=== PATIENT | female | born 1995 | race Caucasian/White ===

== ENCOUNTER → 2017-05-10 11:06 | Outpatient (CLI) | payer OTHER, SELFPAY ==
[2017-05-10 11:11] LABS: Adenovirus,PCR Not Detected (NotDetected); Bordetella Pertussis Not Detected (NotDetected); Chlamydophila Pneumoniae, PCR Not Detected (NotDetected); Coronavirus 229E Not Detected (NotDetected); Coronavirus NL63 Not Detected (NotDetected); Coronavirus OC43 Not Detected (NotDetected); Coronovirus HKU1,PCR Not Detected (NotDetected); Human Metapneumovirus Not Detected (NotDetected); Influenza A, PCR Not Detected (NotDetected); Influenza AH1, 2009 Not Detected (NotDetected); Influenza AH1, PCR Not Detected (NotDetected); Influenza AH3,PCR Not Detected (NotDetected); Mycoplasma Pneumoniae, PCR Not Detected (NotDected); Parainfluenza 1, PCR Not Detected (NotDetected); Parainfluenza 2, PCR Not Detected (NotDetected); Parainfluenza 3, PCR Not Detected (NotDetected); Parainfluenza 4, PCR Not Detected (NotDetected); Respiratory Syncytial Virus Not Detected (NotDetected); Rhinovirus/Enterovirus Not Detected (NotDetected)
[2017-05-10 22:01] LABS: Influenza B, PCR Detected (NotDetected)
== END ==
PROVIDERS: PCP Physician Assistant; Visit Provider Physician Assistant
DX: R50.9 Fever, unspecified (principal); R05 Cough
CPT/HCPCS: 87486; 87581; 87633; 87798

== ENCOUNTER 2022-06-01 16:19 | Outpatient (CLI) | payer SELFPAY ==
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
[2022-06-01 17:15] VITALS: BP 124/65; PULSE 95; RESP 18; TEMP 36.8; O2SAT 96; BMI 24.7
== END 2022-06-01 17:15 | disposition home or self-care (01) ==
LOC: OBOUT 16:21 → OB 16:22
PROVIDERS: Visit Provider Nurse Practitioner Obstetrics & Gynecology
DX: Z04.1 Encounter for examination and observation following transport accident (principal); Z3A.20 20 weeks gestation of pregnancy
CPT/HCPCS: G0463

== ENCOUNTER 2024-04-07 09:10 | Outpatient (CLI) | payer BC, SELFPAY ==
[2024-04-07 16:51] LABS: Basophils % 0.2 % (0.1-2.0); Eosinophils % 0.3 % (0.1-12.0); Hematocrit 40.9 % (37.0-47.0); Hemoglobin 13.7 g/dL (12.2-16.2); Lymphocytes # 2.3 K/mm3 (0.7-4.5); Lymphocytes % 25.9 % (10-50); Mean Corpuscular HGB Conc 33.5 g/dL (31.8-35.4); Mean Corpuscular Hemoglobin 29.8 pg (27.0-31.2); Mean Corpuscular Volume 89.1 fl (81-99); Mean Platelet Volume 10.8 fl (7.4-10.4); Monocytes # 0.4 K/mm3 (0.1-1.0); Monocytes % 4.4 % (1.7-9.3); Neutrophils # 6.1 K/mm3 (1.8-7.8); Platelet Count 337 K/mm3 (142-424); Red Blood Count 4.59 M/mm3 (4.20-5.40); Red Cell Distribution Width 12.3 % (11.5-17.5); White Blood Count 8.9 K/mm3 (4.8-10.8)
[2024-04-07 17:07] LABS: HCG Qualitative, Serum Positive (Negative)
[2024-04-07 17:14] LABS: Alanine Aminotransferase 73 U/L (12-78); Albumin Level 4.6 g/dl (3.5-5.0); Albumin/Globulin Ratio 1.6 (1.1-1.8); Alkaline Phosphatase 65 U/L (38-126); Anion Gap 14.6 mEq/L (5-15); Aspartate Amino Transferase 49 U/L (14-36); Bilirubin,Total 0.5 mg/dl (0.2-1.3); Blood Urea Nitrogen 10 mg/dl (7-17); Calcium 10.1 mg/dl (8.4-10.2); Carbon Dioxide 25 mmol/L (22.0-30.0); Chloride 101 mmol/L (98-107); Estimated Glomerular Filt Rate 101 ml/min (>60); GFR (African American) 122 ML/MIN (>60); Globulin 2.9 g/dL (1.3-3.2); Glucose 84 mg/dl (74-100); Potassium 4.6 mmoL/L (3.5-5.1); Sodium 136 mmol/L (136-145); Total Protein,Serum 7.5 g/dl (6.3-8.2)
[2024-04-07 18:06] LABS: HCG,Quantitative 100580 mIU/ml (0-5.42)
[2024-04-08 08:12] LABS: Progesterone 11.6 ng/mL (.)
== END 2024-04-07 23:59 | disposition home or self-care (01) ==
LOC: LAB.DROPOF 04-08 09:10
PROVIDERS: PCP Nurse Practitioner Family; Visit Provider Nurse Practitioner Family
DX: Z34.02 Encounter for supervision of normal first pregnancy, second trimester (principal); Z3A.20 20 weeks gestation of pregnancy; R11.0 Nausea
CPT/HCPCS: 80053; 84144; 84702; 84703; 85025

== ENCOUNTER 2024-04-08 14:57 | Outpatient (CLI) | payer BC, SELFPAY ==
--- NOTE | 2024-04-08 15:04 | US_ITS ---
PROCEDURE: US OB <= 14 WEEKS FETUS CLINICAL INDICATION: COMPARISON: No exams were available for comparison FINDINGS: Transvaginal sonographic images of the pelvis were obtained. Her last menstrual period is unknown. The uterus is retroverted. An intrauterine gestational sac is present with a pole with a crown-rump length of 1.74cm This correlates to a gestational age of 8weeks 2days. CORNELIO will be 11/16/2024. heart tones are present with an FHR of 170bpm. Yolk sac is noted. The yolk sac measures 6.5mm. There appears to be a small subchorionic hemorrhage. The right ovary is seen and appears normal. There is a corpus luteum within the right ovary that measures 2.0 cm x 1.2 cm. The left ovary is seen and appears normal. There is no fluid in the cul-de-sac. IMPRESSION: 1. Embryo within the uterine cavity with heart activity seen. 2. The embryo measures 8 weeks 2 days and CORNELIO will be 11/16/2024. 3. There appears to be a small subchorionic hemorrhage. 4. Both ovaries are seen and appear normal. There is a corpus luteum in the right ovary. Dictated by: Nj Perez MD 04/09/2024 13:05 Nj Perez MD in OV 04/09/2024 13:05
== END 2024-04-08 23:59 | disposition home or self-care (01) ==
LOC: RAD 14:58
PROVIDERS: PCP Nurse Practitioner Family; Visit Provider Nurse Practitioner Family
DX: Z34.92 Encounter for supervision of normal pregnancy, unspecified, second trimester (principal); Z3A.20 20 weeks gestation of pregnancy
CPT/HCPCS: 76801

== ENCOUNTER 2025-02-03 10:41 | Outpatient (CLI) | payer OTHER, SELFPAY ==
--- OUTSIDE RECORDS SUMMARY | 2024-12-23 13:10 | XMS_ITS | Encounter Summary ---
[facility] Address [address] [place] [address] Care Team Providers Care Bobbin Washer Name Role Phone Shayla Ponce APRN Primary Care Provid er Reason for Referral * Diagnostic Imaging (Routine) - Authorized Specialty Diagnoses / Procedures Referred By Wei elliott Referred To Contact Radiology Diagnoses Family planning Procedures Non-ob Transvaginal Scotty Sparrow MD [address] [facility] [address] [place] [address] Phone: tel: fax: [facility] [address] [facility] [address] [place] [address] Phone: tel: fax: Referral ID Status Reason Start Date Expiration Date V isits Requested Visits Authorized [id number] Authorized 12/23/2024 03/24/2026 1 1 Reason for Visit * Reason Comments Care 11/11/2024 7 WEEKS PP - PAP 05/03 WNL, Discuss IUD insertion Encounter Details Date Type Department Care Team (Late st Contact Info) Description 12/23/2024 1:10 PM EDT Visit [facility] [address] [facility] [address] [place] [phone] Scotty Sparrow MD [address] [facility] [address] [place] [address] Family planning (Primary Dx) Social History Tobacco Use Types Packs/Day Years Used Date Smoking Tobacco: Never Smokeless Tobacco: Never Alcohol Use Standard Drinks/Week Comments Not Currently 0 (1 standard drink = 0.6 oz pur e alcohol) prior to [facility] Utilities Answer Date Recorded In the past 12 months has [employer], gas, oil, or water [employer] threatened to shut off services in your home? No 11/11/2024 AUDIT-C Answer Date Recorded Q1: How often do you have a drink containing alcohol? Never 11/11/2024 Q2: How many drinks containi ng alcohol do you have on a typical day when you are drinking? Patient does not drink Q3: How often do you have si x or more drinks on one occasion? Never 11/11/2024 Overall Financial Resource Strain (CARDIA) Answe r Date Recorded How hard is it for you to pa y for the very basics like food, housing, medical care, and heating? Not hard at all 11/11/2024 PHQ-2 Answer Date Recorded Retired PHQ-9: Brief Depression Severity Measure Score 0 09/28/2022 [facility] of Occupat ional Health - Occupational Stress Questionnaire Answer Date Recorded Do you feel stress - tense, restless, nervous, or anxious, or unable to sleep at night because your mind is troubled all the time - these days? Not at all 11/11/2024 Exercise Vital Sign Answer Date Recorde d On average, how many days pe r week do you engage in moderate to strenuous exercise (like a brisk walk)? 0 days 11/11/2024 On average, how many minutes do you engage in exercise at this level? 0 min 11/11/2024 Hunger Vital Sign Answer Date Recorded Within the past 12 months, y ou worried that your food would run out before you got the money to buy more. Never true 11/12/19 25 Within the past 12 months, t he food you bought just didn't last and you didn't have money to get more. Never true 11/11/2024 PRAPARE - Transportation Answer Date Re corded In the past 12 months, has l ack of transportation kept you from medical appointments or from getting medications? No 08/2024 In the past 12 months, has l ack of transportation kept you from meetings, work, or from getting things needed for daily living? No 11/11/2024 [place] Depression Scale Answer Date Recorded [place] Depression Scale Total 0 12/23/2024 The thought of harming myself has occurred to me . Never 12/23/2024 Abuse Screen Answer Date Recorded Feels Unsafe at Home or Work/School no 11/11/2024 Feels Threatened by Someone no 08/2024 Does Anyone Try to Keep You From Having Contact with Others or Doing Things Outside Your Home? no 11/11/2024 Physical Signs of Abuse Present no 11/11/2024 Housing Stability Answer Date Recorded Current Living Arrangements home 08/2024 Potentially Unsafe Housing Conditions none 11/11/2024 Family and Community Support Answer Torsten e Recorded If for any reason you need h elp with day-to-day activities such as bathing, preparing meals, shopping, managing finances, etc., do you get the help you need? I don't need any help 11/11/2024 How often do you feel lonely or isolated from those around you? Never 11/11/2024 Employment Answer Date Recorded Do you want help finding or keeping work or a job? I do not need or want help 11/11/2024 Disabilities Answer Date Recorded Difficulty Concentrating, Remembering or Making Decisions no 11/11/2024 Difficulty Managing Errands Independently no 11/11/2024 Education Answer Date Recorded Do you want help with school or training? For example, starting or completing job training or getting a high school diploma, GED or equivalent No 11/11/2024 Preferred Language Lao 11/11/2024 PHQ-2 Answer Date Recorded Patient Health Questionnaire-2 Score 0 11/11/2024 Comments No Sex and Gender Information Value Date Recorded Sex Assigned at Not on file Legal Sex Female 1:32 PM EST Gender Identity Not on file Sexual Orientation Not on file documented as of this encounter Last Filed Vital Signs Vital Sign Reading Time Taken Comments Blood Pressure 120/60 12/23/2024 1:17 PM EDT Pulse - - Temperature - - Respiratory Rate - - Oxygen Saturation - - Inhaled Oxygen Concentration - - Weight 74.1 kg (163 lb 6.4 oz) 12/23/2024 1:17 P M EDT Height - - Body Mass Index 31.91 11/11/2024 1:17 PM EDT documented in this encounter Progress Notes * Scotty Sparrow MD - 12/23/2024 1:10 PM EDT Subjective Chief Complaint Patient presents with Care 11/11/2024 7 WEEKS PP - PAP 05/03 WNL, Discuss IUD insertion Giancarlo Perez is a 29 y.o. year old presenting to be seen for her visit. She had a vaginal delivery. Her son is doing well. Since delivery she has not been sexually active. She does not have concerns about post- blues/depression. [place] Score = 0 She is Breast feeding. For ongoing contraception, her plans are undecided. The following portions of the patient's history were reviewed and updated as appropriate:current medications and allergies Social History Tobacco Use Smoking status: Never Smokeless tobacco: Never Review of Systems Constitutional POS: nothing reported NEG: anorexia or night sweats Genitourinary POS: nothing reported NEG: dysuria or hematuria Gastointestinal POS: nothing reported NEG: bloating, change in bowel habits, melena, or reflux symptoms Breast POS: nothing reported NEG: persistent breast lump, skin dimpling, or nipple discharge Objective BP 120/60 Wt 74.1 kg (163 lb 6.4 oz) LMP 01/29/2024 Yes BMI 31.91 kg/m?? General: well developed; well nourished no acute distress mentation appropriate Abdomen: soft, non-tender; no masses no umbilical or inguinal hernias are present no hepato-splenomegaly Pelvis: Clinical staff was present for exam External genitalia: normal appearance of the external genitalia including Bartholin's and Magee's glands. : urethral meatus normal; urethra normal: Vaginal: normal pink mucosa without prolapse or lesions. Cervix: normal appearance. Uterus: retroverted; fully involuted Adnexa: normal bimanual exam of the adnexa. Assessment Normal 6 week exam S/P vaginal delivery Family Planning Consultation Plan BC options reviewed and compared today: condoms, Depo-Provera, IUD - Mirena, IUD - Paraguard, Nexplanon, NuvaRing, and OCP (estrogen/progesterone) The importance of keeping all planned follow-up and taking all medications as prescribed was emphasized. Follow up for ultrasound to recheck IUD location 6 weeks No orders of the defined types were placed in this encounter. IUD Insertion Patient's last menstrual period was 01/29/2024. Date of procedure: 12/23/2024 Risks and benefits discussed? yes All questions answered? yes Consents given by The patient Written consent obtained? yes Time-Out performed: BBB Local anesthesia used: no Procedure documentation: After verifying the patient had a low probability of being and met the criteria for insertion, a sterile speculum has placed and the cervix was cleansed with an antiseptic solution. Vaginal discharge was scant. The anterior lip of the cervix was grasped with a tenaculum and the uterine cavity was gently sounded. There was no difficulty passing the sound through the cervix. Cervical dilation did not need to be performed prior to placing the IUD. The uterus was retroverted and sounded to7 cms. The Mirena was then prepared per the manufacturers instructions. The office supplied Mirena was advanced to a point 2 cms from the fundus and then the arms were released from the sheath. The device was advanced to the fundus and the device was released fully from the sheath.. The string was cut 3 cms in length. Bleeding from the cervix was scant. She tolerated the procedure without any difficulty. Post procedure instructions: It was reviewed with Giancarlo that the Mirena will not alter the timing of when she bleeds but it may decrease the quantity of flow. Roughly 30% of people will be amenorrheic over time. Efficacy rate of 99.2% over 5 years was discussed. Spontaneous expulsion rate of 1-2% was also discussed. If she has any issue with fever or excessive bleeding or pain she is to call the o ffice immediately. Otherwise I would like to see her back in 6 weeks with an ultrasound to confirm correct placement. Scotty Sparrow M.D. December 23, 2024 Note: Dictated Utilizing [email or web address] Dictation documented in this encounter Plan of Treatment Upcoming Encounters Date Type Department Care Team (Late st Contact Info) Description 02/05/2025 12:30 PM EDT Appointment [facility] [address] [facility] [address] [place] [address] 02/05/2025 1:10 PM EDT Office Visit [facility] [address] [facility] [address] [place] [address] Scotty Sparrow MD [address] [facility] [address] [place] [phone] Scheduled Orders Name Type Priority Associated Diagnoses Orde r Schedule US Non-ob Transvaginal Imaging Routine Family planning Expected: 02/03/2025, Expires: 12/23/2025 documented as of this encounter Visit Diagnoses Diagnosis Family planning- Primary Other general counseling and advice for contraceptive management documented in this encounter Care Teams Bobbin Washer Relationship Specialty Start Date End Date Shayla Ponce APRN [address] [place] [phone] PCP - General Family Medicine 04/08/24 documented as of this encounter
--- OUTSIDE RECORDS SUMMARY | 2025-02-04 12:35 | XMS_ITS | Encounter Summary ---
[facility] [address] [place] [address] Care Team Providers Care Division Leader Name Role Phone Shayla Ponce APRN Primary Care Provid er Encounter Details Date Type Department Care Team (Latest Contact Info) Description 12/23/2024 Travel Social History Tobacco Use Types Packs/Day Years Used Date Smoking Tobacco: Never Smokeless Tobacco: Never Alcohol Use Standard Drinks/Week Comments Not Currently 0 (1 standard drink = 0.6 oz pur e alcohol) prior to [facility] Utilities Answer Date Recorded In the past 12 months has [employer], gas, oil, or water [employer] threatened to shut off services in your [...] Brief Depression Severity Measure Score 0 09/28/2022 [facility] [place] of Occupat ional Health - Occupational Stress [...] things needed for daily living? No 11/11/2024 [place] Depression Scale Answer Date Recorded [place] Depression Scale Total 0 12/23/2024 The thought [...] GED or equivalent No 11/11/2024 Preferred Language Togolese 11/11/2024 PHQ-2 Answer Date Recorded Patient Health Questionnaire-2 Score 0 11/11/2024 Comments No Sex and Gender Information Value Date Recorded Sex Assigned at Not on file Legal Sex Female 1:32 PM EST Gender Identity Not on file Sexual Orientation Not on file documented as of this encounter Plan of Treatment Upcoming Encounters Date Type Department Care Team (Late st Contact Info) Description 02/05/2025 12:30 PM EDT Appointment [facility] [address] [facility] [address] [place] [address] 02/05/2025 1:10 PM EDT Office Visit [facility] [address] [place] [id number] [place] [address] Scotty Sparrow MD [address] [address] documented as of this encounter Visit Diagnoses Not on filedocumented in this encounter Care Teams Division Leader Relationship Specialty Start Date End Date Shayla Ponce APRN [address] [place] [address] PCP - General Family Medicine 04/08/24 documented as of this encounter
--- OUTSIDE RECORDS SUMMARY | 2025-02-04 12:35 | XMS_ITS | Encounter Summary ---
[facility] [address] [place] [address] Care Team Providers Care Commercial Pilot Name Role Phone Shayla Ponce APRN Primary Care Provid er Encounter Details Date Type Department Care Team (Late st Contact Info) Description 07/29/2024 Results Follow-Up [facility] [address] [place] [address] Scotty Sparrow MD [address] [facility] [address] [place], [place] [id number] Social History Tobacco Use Types Packs/Day Years Used Date Smoking Tobacco: Never Smokeless Tobacco: Never Alcohol Use Standard Drinks/Week Comments Not Currently 0 (1 standard drink = 0.6 oz pur e alcohol) prior to AUDIT-C Answer Date Recorded Q1: How often do you have a drink containing alcohol? Never 09/28/2022 Q2: How many drinks containi ng alcohol do you have on a typical day when you are drinking? Patient does not drink Q3: How often do you have si x or more drinks on one occasion? Never 09/28/2022 Overall Financial Resource Strain (CARDIA) Answe r Date Recorded How hard is it for you to pa y for the very basics like food, housing, medical care, and heating? Not hard at all 09/28/2022 PHQ-2 Answer Date Recorded Retired PHQ-9: Brief Depression Severity Measure Score 0 09/28/2022 Exercise Vital Sign Answer Date Recorde d On average, how many days pe r week do you engage in moderate to strenuous exercise (like a brisk walk)? 0 days 09/28/2022 On average, how many minutes do you engage in exercise at this level? 0 min 09/28/2022 Hunger Vital Sign Answer Date Recorded Within the past 12 months, y ou worried that your food would run out before you got the money to buy more. Never true 09/29/19 23 Within the past 12 months, t he food you bought just didn't last and you didn't have money to get more. Never true 09/28/2022 PRAPARE - Transportation Answer Date Re corded In the past 12 months, has l ack of transportation kept you from medical appointments or from getting medications? No 09/08 In the past 12 months, has l ack of transportation kept you from meetings, work, or from getting things needed for daily living? No 09/28/2022 [place] Depression Scale Answer Date Recorded [place] Depression Scale Total 1 09/29/2022 The thought of harming myself has occurred to me . Unrecognized value 09/29/2022 Abuse Screen Answer Date Recorded Feels Unsafe at Home or Work/School no 09/28/2022 Feels Threatened by Someone no 09/08 Does Anyone Try to Keep You From Having Contact with Others or Doing Things Outside Your Home? no 09/28/2022 Physical Signs of Abuse Present no 09/28/2022 Housing Stability Answer Date Recorded Current Living Arrangements home 09/08 Potentially Unsafe Housing Conditions none 09/28/2022 Family and Community Support Answer Torsten e Recorded If for any reason you need h elp with day-to-day activities such as bathing, preparing meals, shopping, managing finances, etc., do you get the help you need? I don't need any help 09/28/2022 How often do you feel lonely or isolated from those around you? Never 09/28/2022 Employment Answer Date Recorded Do you want help finding or keeping work or a job? I do not need or want help 09/28/2022 Disabilities Answer Date Recorded Difficulty Concentrating, Remembering or Making Decisions no 09/28/2022 Difficulty Managing Errands Independently no 09/28/2022 Education Answer Date Recorded Do you want help with school or training? For example, starting or completing job training or getting a high school diploma, GED or equivalent No 09/28/2022 Preferred Language American 09/28/2022 PHQ-2 Answer Date Recorded Retired PHQ-9: Brief Depression Severity Measure Score 0 09/28/2022 Comments Yes Sex and Gender Information Value Date Recorded Sex Assigned at Not on file Legal Sex Female 1:32 PM EST Gender Identity Not on file Sexual Orientation Not on file documented as of this encounter Progress Notes * Scotty Sparrow MD - 07/30/2024 9:07 AM EDT She is borderline anemic and I have sent a precsription to mail order pharmacy for iron supplement to be taked in addition to the vitamin documented in this encounter Miscellaneous Notes * Telephone Encounter - Kd [employer]al RegSched Rep - 08/26/2024 9:42 AM EDT Patient called, stating she has not yet received Ferric Maltol. Patient wants to know if it could be sent to local pharmacy instead. Please advise documented in this encounter Plan of Treatment Upcoming Encounters Date Type Department Care Team (Late st Contact Info) Description 02/05/2025 12:30 PM EDT Appointment [facility] [address] [facility] [address] [place] [address] 02/05/2025 1:10 PM EDT Office Visit [facility] [address] [facility] [address] [place] [address] Scotty Sparrow MD [address] [facility] [address] [place] [address] documented as of this encounter Visit Diagnoses Not on filedocumented in this encounter Care Teams Commercial Pilot Relationship Specialty Start Date End Date Shayla Ponce APRN [address] [place] [address] PCP - General Family Medicine 04/08/24 documented as of this encounter
--- OUTSIDE RECORDS SUMMARY | 2025-02-04 12:35 | XMS_ITS | Clinical Summary ---
Author Organization [facility] Address [address] [place] [address] Care Team Providers Care Shipping Support Clerk Name Role Phone Shayla Ponce APRN Primary Care Provid er Allergies No known active allergies Medications Vit-Fe Fumarate-FA ( Vitamin Plus Low Iron) 27-1 MG tablet Take 1 tablet by mouth Daily. 100 tablet 3 2 Active calcium carbonate (TUMS) 500 MG chewable tablet Chew 1-2 tablets As Needed for Indigestion or Heartburn. Active ferrous sulfate 325 (65 FE) MG tablet Take 1 tablet by mouth Daily With Breakfast. 100 tablet 1 5 Active benzocaine-ment hol (DERMOPLAST) 20-0.5 % aerosol topical spray Apply topically to the appropriate area as directed As Needed for Mild Pain (perineal pain). 78 g 5 Active ibuprofen (ADVIL,MOTRIN) 600 MG tablet Take 1 tablet by mouth Every 6 (Six) Hours As Needed for Mild Pain or Moderate Pain. 60 tablet 11/13/2024 10:14 AM EDT 5 Active witch booker-glycerin (TUCKS) pad Apply 1 Pad topically to the appropriate area as directed As Needed for Irritation or Hemorrhoids. 100 each 5 Active Active Problems Problem Noted Date Diagnosed Date Family planning 12/23/2024 exam 12/23/2024 History of prior with IUGR Assessment & Plan (07/01/2024 11:21 AM EDT): We will plan to follow patient for serial growth. Resolved Problems Problem Noted Date Diagnosed Date Resolved Date Term 11/11/2024 12/23/2024 07/29/2024 12/23/2024 Preeclampsia 09/28/2022 04/22/2024 IUGR (intrauterine growth re tardation) affecting mother, third trimester, not applicable or unspecified fetus 08/24/2022 04/22/19 Assessment & Plan (08/24/2022 10:08 AM EDT): There is considerable variability in the definition of what constitutes a growth-restricted fetus. Definitions have included estimated weight below the 3rd percentile, below the 5th percentile or below the 10th percentile for gestational age. Subnormal growth may be a consequence of error in dating criteria or result from chronic uteroplacental insufficiency, exposure to drugs or environmental agents, congenital infections or intrinsic genetic limitations of growth potential. Early or symmetric IUGR can suggest chromosomal abnormalities such as trisomies, triploidies or maternal uniparental disomy. Asymmetrical IUGR may result from nutritional compromise with sparing of head growth and be associated with tobacco abuse, chronic placental abnormalities such as abruption or as a harbinger of preeclampsia. Current recommendations by Copel and Gladisr for the management of growth restriction, (Obstet Gynecol August 2013) suggest for patients at term (37 0/7 weeks' gestation or more) that delivery be affected if the estimated weight is less than the 5th percentile, or oligohydramnios is present with an estimated weight of less than the 10th percentile, or with worsening testing results. Otherwise, delivery can be delayed as long as testing is reassuring with plans for elective delivery at 39 weeks' gestation. Induction of labor can be attempted depending on the indication for delivery. If the diagnosis of IUGR is (before 37 weeks' gestation), it is not possible to make absolute recommendations on timing unless other testing is reassuring based on the data from the Growth Restriction Intervention Trial (GRIT), a multinational prospective randomized study (Lancet 2004). It is suggested that growth be monitored every two weeks with consideration for delivery if no growth occurs over the course of 14 days. The patient should receive twice weekly nonstress testing with amniotic fluid volume assessment. Further, the literature would support weekly Doppler ultrasonography of the umbilical artery in the setting of intrauterine growth retardation with hospitalization for evidence of absent or reverse end-diastolic velocities. Delivery should also be considered for worsening testing (biophysical profile score less than 6/8 or nonreassuring heart rate tracing). When delivery before 32 weeks' gestation is imminent, consider intravenous magnesium sulfate administration for neuroprotection. Patient is today with early abdominal circumference lag. Normal circumference is approximately 3% sent for dates. As such I would recommend increased rest and nutrition. Due to her history of gestational hypertension I would also institute twice-weekly testing. With normal ZACARIAS and Dopplers today as well as an overall normal EFW I would believe that NSTs would be adequate in Dr. Sparrow's office. We will rescan this patient for growth in 2 weeks. 39 weeks gestation of 03/14/2022 12/23/2024 Hx of preeclampsia, prior pr egnancy, currently 03/14/2022 12/23/2024 Assessment & Plan (09/23/2024 10:46 AM EDT): Patient returns today for complicated by history of preeclampsia as well as a history of intrauterine growth restriction. Patient's blood pressure today is 117/67 she reports no signs or symptoms of preeclampsia. She notes good movement. Ultrasound today demonstrates a normally grown fetus with no abnormality seen. Amniotic fluid volume and umbilical artery Dopplers are normal. Cervical length appears normal. Patient was counseled regarding signs and symptoms of preeclampsia. Hopefully she will not have a recurrence of the disease. appears to be growing very well today with no evidence of intrauterine growth restriction. At the current time I do not see any reason to alter normal obstetric care. We have not scheduled the patient back with us but we would be happy to see her if needed. Patient was counseled extensively regarding movement will contact her provider immediately if she notices any decreased movement. Assessment & Plan (07/01/2024 11:23 AM EDT): BP today is 120/64. Patient has not started taking a daily [id number]. She has some baseline labs, but not all. Serum creatinine 0.56, AST/ALT 14/10. - Recommend urine P:C ratio today - Recommend full preeclampsia panel or adding uric acid and LDH - Recommend patient start taking daily ASA 81mgs for possible preeclampsia prevention Supervision of high risk pre gnancy, antepartum 03/14/2022 12/23/2024 Weight loss, unintentional 12/08/2020 0 04/22/2024 Family planning counseling 03/25/2018 0 12/08/2020 care following 02/09/18 (boy) 02/09/2018 03/14/2022 Bleeding from genital tract during 8 01/08/2018 38 weeks gestation of 07/17/2017 02/09/2018 07/03/2017 02/09/2018 Recurrent urinary tract infection 07/03/2017 12/08/2020 Labor without complication 09/26/2015 0 09/26/2015 Vaginal delivery 09/26/2015 08/07/2017 Mild preeclampsia delivered 09/26/2015 10/30/2017 [facility] 16 [facility] or older in third trimester 09/08/2015 09/26/2015 Encounters Date Type Department Care Team Description 12/23/2024 1:10 PM EDT Visit [facility] [address] [facility] [address] [place] [address] Scotty Sparrow MD Family planning (Primary Dx) 12/23/2024 Travel 11/24/2024 Maternal Screening [facility] [address] [place] [address] Kathrin Copeland, RN 11/14/2024 Maternal Screening [facility] [address] [place] [address] Steff Parish RN 11/11/2024 4:07 PM EDT Anesthesia Event [facility] [address] [place] [address] Sheyla Jacobson DO 11/11/2024 12:39 PM EDT - 11/13/2024 2:11 PM EDT Hospital Encounter [facility] 4[facility] [address] [address] Scotty Sparrow MD Supervision of high risk , antepartum Discharge Disposition: Home or Self Care 11/11/2024 5:00 AM EDT - 11/11/2024 11:59 PM EDT Hospital Encounter [facility] PROCED[facility] [address] [place] [id number] Discharge Disposition: Home or Self Care 11/11/2024 Travel 11/10/2024 Prep for Surgery [facility] [address] [place] [address] Scotty Sparrow MD 11/04/2024 10:30 AM EDT Routine [facility] OBGYN [address] [place] [address] Scotty Sparrow MD [place]: [id number] 11/04/2024 Prep for Surgery [facility] [address] [place] [address] Scotty Sparrow MD 11/04/2024 Travel from Last 3 Months Family History Medical History Relation Name Comments Hypertension Father Heart disease Paternal Grandmother Hypertension Paternal Grandmother Relation Name Status Comments Father Alive Mother Alive Paternal Grandmother Social History Tobacco Use Types Packs/Day Years Used Date Smoking Tobacco: Never Smokeless Tobacco: Never Tobacco Cessation:Counseling Given: Not Answered Alcohol Use Standard Drinks/Week Comments Not Currently 0 (1 standard drink = 0.6 oz pur e alcohol) prior to [facility] Utilities Answer Date Recorded In the past 12 months has [employer], [employer], or water [facility] threatened to shut off services in your [...] Brief Depression Severity Measure Score 0 09/28/2022 [facility] - Occupational Stress [...] things needed for daily living? No 11/11/2024 [place] Depression Scale Answer Date Recorded [place] Depression Scale Total 0 12/23/2024 The thought [...] GED or equivalent No 11/11/2024 Preferred Language Gibraltarian 11/11/2024 PHQ-2 Answer Date Recorded Patient Health Questionnaire-2 Score 0 11/11/2024 Comments No Sex and Gender Information Value Date Recorded Sex Assigned at Not on file Legal Sex Female 1:32 PM EST Gender Identity Not on file Sexual Orientation Not on file Last Filed Vital Signs Vital Sign Reading Time Taken Comments Blood Pressure 120/60 12/23/2024 1:17 PM EDT Pulse 70 11/13/2024 7:15 AM EDT Temperature 36.8 C (98.3 F) 11/13/2024 7:15 AM EDT Respiratory Rate 16 11/13/2024 7:15 AM EDT Oxygen Saturation - - Inhaled Oxygen Concentration - - Weight 74.1 kg (163 lb 6.4 oz) 12/23/2024 1:17 P M EDT Height 152.4 cm (5') 11/11/2024 1:17 PM EDT Body Mass Index 31.91 11/11/2024 1:17 PM EDT Plan of Treatment Upcoming Encounters Date Type Department Care Team (Late st Contact Info) Description 02/05/2025 12:[address] [facility] [address] [facility] [address] [place] [address] 02/05/2025 1:10 PM EDT Office Visit [facility] [address] [facility] [address] [place] [address] Scotty Sparrow MD [address] [facility] [address] [place] [address] Health Maintenance Due Date Last Done Comments ANNUAL PHYSICAL 06/26/2017 TDAP/TD VACCINES (2 - Td or Tdap) 11/05/2019 11/04/2009 Annual Gynecologic Pelvic and Breast Exam 12/09/2021 12/08/2020 INFLUENZA VACCINE 11/07/2024 PAP SMEAR 04/22/2027 04/22/2024 Pneumococcal Vaccine 0-49 Aged Out 03/27/2000 No longer eligible based on patient's age to complete this topic CHLAMYDIA SCREENING Discontinued 04/22/2024 HEPATITIS C SCREENING Completed 04/22/2024 , 03/20/2022, 07/03/2017 Procedures Procedure Name Priority Date/Time Associated Diagnosis Comments CBC AND DIFFERENTIAL Timed 2024 5:21 AM EDT CBC WITH AUTO DIFFERENTIAL Timed 2024 5:21 AM EDT PRE-ECLAMPSIA PANEL Routine 2024 5 :21 AM EDT HC BH AN LABOR EPIDURAL KIT Routine 11/11/2024 4:20 PM EDT TYPE AND SCREEN Routine 11/11/2024 2:17 PM EDT Supervision of high risk , antepartum PRE-ECLAMPSIA PANEL Routine 11/11/2024 2 :17 PM EDT TREPONEMA PALLIDUM AB W/REFLEX RPR Routine 11/11/2024 1:11 PM EDT Supervision of high risk , antepartum CBC (NO DIFF) Routine 11/11/2024 1:11 PM EDT Supervision of high risk , antepartum POCT URINALYSIS DIPSTICK, MANUAL Routine 11/04/2024 10:49 AM EDT HEPATITIS C ANTIBODY Routine 04/22/2024 1:18 PM EST Supervision of high risk , antepartum LIQUID-BASED PAP SMEAR WITH HPV GENOTYPING REGARDLESS OF INTERPRETATION, [facility] (PAZ,COR,MAD) Routine 04/22/2024 12:34 PM EST Supervision of high risk , antepartum from Last 3 Months or Most Recently Relevant to Health Maintenance Results * (ABNORMAL) Preeclampsia Panel (2024 5:21 AM EDT) Only the most recent of2 resultswithin the time period is included. Alkaline Phosphatase 147(H) 39 - 117 U/L 2024 6:27 AM EDT [facility] ALT (SGPT) 16 1 - 33 U/L 2024 6:27 AM EDT [facility] AST (SGOT) 26 1 - 32 U/L 2024 6:27 AM EDT [facility] Creatinine 0.66 0.57 - 1.00 mg/dL 2024 6:27 AM EDT [facility] Total Bilirubin <0.2 0.0 - 1.2 mg/dL 2024 6:27 AM EDT [facility] LDH 262(H) 135 - 214 U/L 2024 6:27 AM EDT [facility] Uric Acid 7.1(H) 2.4 - 5.7 mg/dL 2024 6:27 AM EDT [facility] Blood Venipuncture / Unknown 2024 5:21 AM EDT 2024 6:06 AM EDT us Scotty Sparrow MD LAB BLOOD ORDERABLES Final Result [facility]
[address] [place] [address], * (ABNORMAL) CBC Auto Differential (2024 5:21 AM EDT) Pathologist [facility] WBC 10.60 3.40 - 10.80 10*3/mm3 [facility] RBC 4.01 3.77 - 5.28 10*6/mm3 2024 6:38 AM [facility] Hemoglobin 12.3 12.0 - 15.9 g/dL 2024 6:38 AM T [facility] Hematocrit 37.0 34.0 - 46.6 % 2024 6:38 AM EDT [facility] MCV 92.3 79.0 - 97.0 fL 2024 6:38 AM EDT [facility] MCH 30.7 26.6 - 33.0 pg 2024 6:38 AM [facility] MCHC 33.2 31.5 - 35.7 g/dL 2024 6:38 AM [facility] RDW 13.0 12.3 - 15.4 % 2024 6:38 AM [facility] RDW-SD 44.0 37.0 - 54.0 fl 2024 6:38 AM [facility] MPV 11.4 6.0 - 12.0 fL 2024 6:38 AM [facility] Platelets 211 140 - 450 10*3/mm3 2024 6:38 AM [facility] Neutrophil % 68.0 42.7 - 76.0 % 2024 6:38 AM EDT [facility] Lymphocyte % 22.9 19.6 - 45.3 % 2024 6:38 AM EDT [facility] Monocyte % 7.1 5.0 - 12.0 % 2024 6[facility] Eosinophil % 0.9 0.3 - 6.2 % 2024 6[facility]38 [facility] Basophil % 0.6 0.0 - 1.5 % 2024 6:38 AM EDT [facility] Immature Grans % 0.5 0.0 - 0.5 % 2024 6:38 AM EDT [facility] Neutrophils, Absolute 7.21(H) 1.70 - 7.00 10*3/mm3 2024 6:38 AM EDT [facility] Lymphocytes, Absolute 2.43 0.70 - 3.10 10*3/mm3 2024 6:38 AM EDT [facility] Monocytes, Absolute 0.75 0.10 - 0.90 10*3/mm3 2024 6:38 AM EDT [facility] Eosinophils, Absolute 0.10 0.00 - 0.40 10*3/mm3 2024 6:38 AM EDT [facility] Basophils, Absolute 0.06 0.00 - 0.20 10*3/mm3 2024 6:38 AM EDT [facility] Immature Grans, Absolute 0.05 0.00 - 0.05 10*3/mm3 2024 6:38 AM EDT [facility] nRBC 0.0 0.0 - 0.2 /100 WBC 2024 6:38 AM EDT [facility] Blood Venipuncture / Unknown 2024 5:21 AM EDT 2024 6:20 AM EDT Scotty Sparrow MD LAB BLOOD ORDERABLES Final Result [facility]
[address] [place] [address], * HC BH AN LABOR EPIDURAL KIT (11/11/2024 4:20 PM EDT) Narrative Sheyla Jacobson DO - 11/11/2024 4:20 PM EDT Sheyla Jacobson DO 11/11/2024 4:20 PM Labor Epidural Patient reassessed immediately prior to procedure Patient location during procedure: OB Performed By Anesthesiologist: Sheyla Jacobson DO Preanesthetic Checklist Completed: patient identified, IV checked, risks and benefits discussed, surgical consent, monitors and equipment checked, pre-op evaluation and timeout performed Additional Notes DPE performed using 25g Chapo Prep: Pt Position:sitting Automobile Rental Clerk:cap, gloves, mask and sterile barrier Prep:chlorhexidine gluconate and isopropyl alcohol Monitoring:blood pressure monitoring Epidural Block Procedure: Approach:midline Guidance:palpation technique Location:L3-L4 Needle Type:Tuohy Needle Gauge:17 G Loss of Resistance Medium: air Loss of Resistance: 5cm Cath Depth at skin:11 cm Paresthesia: none Aspiration:negative Test Dose:negative Number of Attempts: 1 Post Assessment: Dressing:occlusive dressing applied and secured with tape Pt Tolerance:patient tolerated the procedure well with no apparent complications Complications:no Sheyla Torres DO ANESTHESIA ORDERAB LES Final Result * Type & Screen (11/11/2024 2:17 PM EDT) ABO Type O 11/11/2024 3:11 PM EDT [facility] RH type Positive 11/11/2024 3:11 PM EDT [facility] Antibody Screen Negative 11/11/2024 3:11 PM EDT [facility] T&S Expiration Date 11/14/2024 11:59:59 PM 11/11/2024 3:11 PM EDT [facility] Blood Structure of right upper limb / Unknown Venipuncture / Unknown 11/11/2024 2:17 PM EDT 11/11/2024 2:30 PM EDT Scotty Sparrow MD BLOOD BANK TEST ORDERABLES Edited Result - Final [facility]
[address] [place] [address], * Treponema pallidum AB w/Reflex RPR (11/11/2024 1:11 PM EDT) Treponemal AB Total Non-Reacti ve Non-React janis 11/11/2024 8:16 PM EDT [facility] Blood Venipuncture / Unknown 11/11/2024 1:11 PM EDT 11/11/2024 1:22 PM EDT Narrative [facility] - 11/11/2024 8:16 PM EDT Reactive results will reflex RPR testing. Scotty Sparrow MD LAB BLOOD ORDERABLES Final Result [facility]
[address] [place] [address], * CBC (No Diff) (11/11/2024 1:11 PM EDT) Pathologist [facility] WBC 8.88 3.40 - 10.80 10*3/mm3 11/11/2024 1:29 PM EDT [facility] RBC 4.45 3.77 - 5.28 10*6/mm3 11/11/2024 1:29 PM EDT [facility] Hemoglobin 13.4 12.0 - 15.9 g/dL 11/11/2024 1:29 PM EDT [facility] Hematocrit 40.7 34.0 - 46.6 % 11/11/2024 1:29 PM EDT [facility] MCV 91.5 79.0 - 97.0 fL 11/11/2024 1:29 PM EDT [facility] MCH 30.1 26.6 - 33.0 pg 11/11/2024 1:29 PM EDT [facility] MCHC 32.9 31.5 - 35.7 g/dL 11/11/2024 1:29 PM EDT [facility] RDW 13.1 12.3 - 15.4 % 11/11/2024 1:29 PM EDT [facility] RDW-SD 43.6 37.0 - 54.0 fl 11/11/2024 1:29 PM EDT [facility] MPV 11.2 6.0 - 12.0 fL 11/11/2024 1:29 PM EDT [facility] Platelets 270 140 - 450 10*3/mm3 11/11/2024 1:29 PM EDT [facility] Blood Venipuncture / Unknown 11/11/2024 1:11 PM EDT 11/11/2024 1:22 PM EDT Scotty Sparrow MD LAB BLOOD ORDERABLES Final Result [facility]
[address] [place] [address], [place] [phone] * (ABNORMAL) POC Urinalysis Dipstick (11/04/2024 10:49 AM EDT) [facility] Glucose, UA Negative Negative mg/dL Protein, POC Trace(A) Negative mg/dL Urine 11/04/2024 10:4 9 AM EDT Ally Leach MD POINT OF CARE TEST ORDERA BLES Final Result * Hepatitis C Antibody (04/22/2024 1:18 PM EST) [facility] Hepatitis C Ab Non-Reacti ve Non-Reacti ve 04/22/2024 8:55 PM EST [facility] Blood Venipuncture / Unknown 04/22/2024 1:18 PM EST 04/22/2024 1:18 PM EST Scotty Sparrow MD LAB BLOOD ORDERABLES Final Result [facility]
[address] [place] [address], [place] [phone] * LIQUID-BASED PAP SMEAR WITH HPV GENOTYPING REGARDLESS OF INTERPRETATION (PAZ,COR,MAD) (04/22/2024 12:34 PM EST) [facility] Reference Lab Report [facility] [address] [place] [address] or [phone] Tahir Fox M.D., Inhalation Therapy Teacher PATIENT NAME LABORATORY NO. GIANCARLO MAHONEY. [id number] AGE SEX N CLIENT REF # [facility] [address] 1995 F [id number] [facility] REQUEST[facility] Elan. ATTENDING M.D. COPY TO. MD PANCHO CARTY BLAKE [address] [facility], [address] DATE COLLECTED DATE RECEIVED [place] [address] 04/22/2024 04/22/2024 04/23/2024 ThinPrep Pap with Cytyc Imaging DIAGNOSIS: Negative for intraepithelial lesion or malignancy Multiple factors can influence accuracy of Pap tests; therefore, screening at regular intervals is necessary for early cancer detection. Professional interpretation rendered by Zelalem Silva M.D.,F.C.A.P. at [facility], [address] [place] [address]. SPECIMEN ADEQUACY: SATISFACTORY FOR EVALUATION Transformation zone is absent or insufficient. SOURCE OF SPECIMEN: VAGINAL/CERVICAL/ ENDOCERVICAL SLIDES: 1 CLINICAL HISTORY: Supervision of high risk , antepartum HPV HR-HPV POOL: Negative The Aptima HPV assay is an in vitro nucleic acid amplification test for the qualitative detection of E6/E7 viral messenger RNA from 14 high risk types of HPV in cervical specimens. The high risk HPV types detected include: 16, 18, 31, 33, 35, 39, 45, 51, 52, 56, 58, 59, 66, 68 TRAINING AND DEVELOPMENT HEAD: TEA LEDESMA (ASCP) REVIEWED, DIAGNOSED AND ELECTRONICALLY SIGNED BY: Zelalem Silva M.D.,F.C.A.P. CPT CODES: [id number], [id number], [id number] 04/23/2024 10:45 AM EST [facility] ThinPrep Vial Cervix uteri structure / Unknown Collection / Unknown 04/22/2024 12:34 PM EST 04/22/2024 12:34 PM EST us Scotty Sparrow MD PATHOLOGY/CYTOLOGY ORDERABL ES Final Result [facility]
[address] [place] [address], [place] [phone] from Last 3 Months or Most Recently Relevant to Health Maintenance Insurance [facility] Advance Directives * CPR (Attempt to Resuscitate) (Latest Code Status on File) Date Activated Date Inactivated Comments 11/11/2024 8:05 PM 11/13/2024 4:12 PM Question Answer Comments Code Status (Patient has no pulse and is not breathing): CPR (Attempt to Resuscitate) Medical Interventions (Patie nt has pulse or is breathing): Full * CPR (Attempt to Resuscitate) Date Activated Date Inactivated Comments 11/11/2024 12:56 PM 11/11/2024 8:05 PM Question Answer Comments Code Status (Patient has no pulse and is not breathing): CPR (Attempt to Resuscitate) Medical Interventions (Patie nt has pulse or is breathing): Full Support Level Of Support Discussed With: Patient * CPR (Attempt to Resuscitate) Date Activated Date Inactivated Comments 09/28/2022 10:41 PM 09/30/2022 5:59 PM Question Answer Comments Code Status (Patient has no pulse and is not breathing): CPR (Attempt to Resuscitate) Medical Interventions (Patie nt has pulse or is breathing): Full * CPR (Attempt to Resuscitate) Date Activated Date Inactivated Comments 09/28/2022 8:57 AM 09/28/2022 10:41 PM Question Answer Comments Code Status (Patient has no pulse and is not breathing): CPR (Attempt to Resuscitate) Medical Interventions (Patie nt has pulse or is breathing): Full Support Release to patient: Routine Release * CPR (Attempt to Resuscitate) Date Activated Date Inactivated Comments 02/09/2018 5:03 AM 02/11/2018 4:18 PM Question Answer Comments Code Status (Patient has no pulse and is not breathing): CPR (Attempt to Resuscitate) Medical Interventions (Patie nt has pulse or is breathing): Full Care Teams Shipping Support Clerk Relationship Specialty Start Date End Date Shayla Ponce APRN [address] [place] [address] PCP - General Family Medicine 04/08/24
== END 2025-02-03 23:59 ==
LOC: LAB.DROPOF 02-04 12:31
PROVIDERS: PCP Nurse Practitioner Family; Visit Provider Nurse Practitioner Family
DX: R39.9 Unspecified symptoms and signs involving the genitourinary system (principal)
CPT/HCPCS: 87086; 87088